=== PATIENT | female | born 1940 | race Caucasian/White ===

== ENCOUNTER 2016-08-08 07:44 | Day surgery (SDC) ==
[2016-04-08 08:46] VITALS: BMI 24.7
[2016-08-08] MEDS ORDERED: LIDOCAINE 1% 20 ML MDV ONE (08:05)
[2016-08-08] MEDS ORDERED: LIDOCAINE 1% 20 ML MDV ID ONE (08:05)
[2016-08-08] MEDS ORDERED: ALBUTEROL 0.083% NEB NEB STA (08:22)
[2016-08-08] MEDS ORDERED: DIPRIVAN 20 ML VIAL IVP ONE (09:41)
[2016-08-08] MEDS ORDERED: VERSED ONE (09:41)
[2016-08-08 11:21] VITALS: BP 161/69; TEMP 99
[2016-08-08 11:24] LABS: CREATININE 0.73 mg/dL (0.60-1.30)
--- NOTE | 2016-08-08 14:22 | OP ---
PROCEDURE: EGD (ESOPHAGOGASTRODUODENOSCOPY). ENDOSCOPIST: Cortes PRIDE M.D. INDICATION: HEME POSITIVE STOOL, IRON DEFICIENCY ANEMIA INSTRUMENT: GIFH-190. MEDICATION: PER ANESTHESIA. PROCEDURE: The patient was positioned for endoscopy. The oropharynx was sprayed with Cetacaine spray and the endoscope was advanced through the bite block into the esophagus and from there advanced to the duodenum. The duodenum was normal. The pylorus was patent. The antrum is normal. There is some mild gastritis noted in the antrum and body. Retroflex exam reveals normal cardia. The GE junction is normal. The esophagus is normal. The patient tolerated the procedure without immediate complication. PLAN: 1. Continue current medications. CC: DR. MARION COOK
--- NOTE | 2016-08-08 14:24 | OP ---
PROCEDURE: COLONOSCOPY. ENDOSCOPIST: Cortes PRIDE M.D. INDICATION: ANEMIA. INSTRUMENT: PCFH-190. MEDICATION: PER ANESTHESIA. PROCEDURE: The patient was positioned for colonoscopy. The digital rectal exam was negative. The colonoscope was inserted through the anus and advanced to the cecum. The cecum was identified using the ileocecal valve and the appendiceal orifice as landmarks. The scope was slowly withdrawn through an adequately prepped colon. The exam is notable for scattered diverticulosis. There is no evidence for inflammatory change, polyp or mass. The retroflex exam was normal. The patient tolerated the procedure without immediate complication. Withdrawal time 7 minutes. PLAN: 1. I suggest CT scan of the abdomen and pelvis given her 35 lb weight loss. 2. Further recommendations to follow. CC: DR. MARION COOK
== END 2016-08-08 11:22 | disposition home or self-care (01) ==
LOC: SURG 07:44
PROVIDERS: ATTEND Internal Medicine Gastroenterology
DX: D50.9 Iron deficiency anemia, unspecified (principal); R19.5 Other fecal abnormalities; K57.30 Diverticulosis of large intestine without perforation or abscess without bleeding; K29.70 Gastritis, unspecified, without bleeding; R63.4 Abnormal weight loss
CPT/HCPCS: 36415; 82565; 94640

== ENCOUNTER 2016-08-09 08:20 | Outpatient (CLI) ==
[2012-10-24 09:29] VITALS: TEMP 97.8
[2016-04-08 08:46] VITALS: BMI 24.7
--- NOTE | 2016-08-09 09:36 | CT ---
EXAM: CT abdomen pelvis with contrast HISTORY: Weight loss with history of prior cholecystectomy COMPARISON: CT abdomen 05/09/2000 a TECHNIQUE: Serial axial images of the abdomen pelvis were performed after 75 mL is of Omnipaque IV contrast was administered. These were obtained from the lung bases through the inferior pelvis. FINDINGS: The lung bases demonstrate minimal peripheral reticular opacities and ground-glass sugges tive of minimal fibrosis. The liver is normal. The gallbladder has been removed. The adrenal glands are normal. The kidneys are normal. There is a small low attenuation cyst in the medial left kidney measuring 0.5 cm. The spleen demonstrates calcified granulomas. The pancreas is unremarkable. The stomach is partially distended. Small bowel in the abdomen pelvis is normal. The appendix is normal. The uterus is unremarkable. There are multiple contrast-enhanced vessels in the pelvis. There is no lymphadenopathy, free air o r free fluid. The osseous structures are unremarkable. IMPRESSION: 1. No acute intra-abdominal or pelvic process to account for patient's symptoms. 2. Left renal cyst. 3. Old granulomatous disease. 4. Prior cholecystectomy. 5. Prominent pelvic contrast enhancing vessels may represent component of pelvic congestion syndrom e.
== END 2016-08-09 08:21 | disposition home or self-care (01) ==
LOC: RAD 08:20
PROVIDERS: ATTEND Internal Medicine Gastroenterology
DX: R63.4 Abnormal weight loss (principal)

== ENCOUNTER 2016-09-03 17:20 | Emergency (ER) ==
[2016-09-03 17:30] VITALS: BMI 24.0
[2016-09-03] MEDS ORDERED: SODIUM CHLORIDE 1,000 ML IV STA (17:33)
--- NOTE | 2016-09-03 17:36 | ED.PDOC ---
General ED Provider: Dr. LAVELLE ROBIN JR Stated Complaint: FEVER COUGH 3 DAYS VOMITED TWICE EARLY STILL NAUSEATED MOVES HER HEAD GETS EXTREMELY DIZZY[End] 100.8 116 20 93% 109/67 4/10 Time Seen by Physician: 17:36 Mode of Arrival: Walk-In Information Source: Patient Exam Limitations: No limitations Primary Care Provider: NOREEN SCHULTZ Nursing and Triage Documentation Reviewed and Agree: No Review of Systems - Review Of Systems Constitutional: Reports: Chills, Fever Eyes: Reports: No symptoms Ears, Nose, Mouth, Throat: Reports: No symptoms Respiratory: Reports: Cough Cardiac: Reports: No symptoms GI: Reports: Nausea, Vomiting : Reports: No symptoms Musculoskeletal: Reports: Muscle pain Skin: Reports: No symptoms Neurological: Reports: Headache Endocrine: Reports: No symptoms Hematologic/Lymphatic: Reports: No symptoms All Other Systems: Other Past Medical History - Past Medical History Previously Healthy: Yes Endocrine: Reports: None Cardiovascular: Reports: None Respiratory: Reports: COPD Hematological: Reports: None Gastrointestinal: Reports: None Genitourinary: Reports: None Neuro/Psych: Reports: None Musculoskeletal: Reports: None Cancer: Reports: None Last Menstrual Period: N/A Other Pertinent Past Medical History: macular degeneration-- - Surgical History General Surgical History: Reports: Cholecystectomy, Orthopedic (fx rt foot cholecystectomy ) - Family History Family History: Reports: None - Social History Smoking Status: Never smoker Hx Substance Use: No Alcohol Screening: None - Immunizations Tetanus Shot up to Date: Yes Physical Exam - Physical Exam Appearance: Ill-appearing, Thin Ill-appearing: Mild Pain Distress: Mild Eyes: MICHELLE, EOMI, Conjunctiva clear ENT: Ears normal, Nose normal, Oropharynx normal Neck: Supple Respiratory: Breath sounds diminished, Rhonchi Cardiovascular: RRR GI/: Soft, Nontender, No masses, Bowel sounds normal, No Organomegaly Musculoskeletal: Normal strength, ROM intact, No edema, No calf tenderness Skin: Warm, Dry, Normal color Neurological: Sensation intact, Motor intact, Reflexes intact, Cranial nerves intact, Alert, Oriented Psychiatric: Affect appropriate, Mood appropriate Interpretation - Radiology Interpretation Radiology Interpretation By: ED Physician Radiology Results: Positive Exam Interpreted: CXR - EKG Interpretation Rate: Normal Rhythm: Sinus ST Segment: Other (prolonged QT) Re-Evaluation - Re-Evaluation Time of Re-Evaluation: 19:22 Status: Improved (patient feels much better no nausea wants to try at home with medication, note has two small children (3 and 5) at home but child's mother is occasionall y helpful, agreed to allow antibiotics at home frequent temperature and close follow up return if any worse) Critical Care Note - Critical Care Note Total Time (mins): 0 Course - Course Hematology/Chemistry: 09/03/16 17:45 09/03/16 17:45 Orders, Labs, Meds: Lab Review 09/03/16 09/03/16 09/03/16 17:33 17:45 17:51 WBC 14.03 H RBC 3.81 L Hgb 11.3 L Hct 33.9 L MCV 89.0 MCH 29.7 MCHC 33.3 RDW Coeff of [place] 13.4 Plt Count 218 Immature Gran % (Auto) 0.4 Neut % (Auto) 79.2 Lymph % (Auto) 13.4 [place] % (Auto) 6.7 Eos % (Auto) 0.1 Baso % (Auto) 0.2 Immature Gran # (Auto) 0.1 Neut # 11.1 H Lymph # 1.9 [place] # 0.9 Eos # 0.0 Baso # 0.0 Puncture Site Rr O2 Saturation 100.0 ABG pH 7.499 H ABG pCO2 29.8 L ABG pO2 152.0 H ABG HCO3 23.1 ABG Total CO2 24 ABG Base Excess 0 Angel Test + O2 Delivery Device Nc Oxygen Liter Flow 2.00 FiO2 % 28.0 Sodium 134 L Potassium 3.9 Chloride 100 Carbon Dioxide 24 Anion Gap 13.9 BUN 16 Creatinine 0.73 Estimated GFR (MDRD) 77.00 BUN/Creatinine Ratio 21.91 Glucose 116 H Lactic Acid 8.9 Calcium 9.8 Total Bilirubin 0.96 AST 15 ALT 9 L Alkaline Phosphatase 92 Total Creatine Kinase 26 Troponin I < 0.0100 B-Natriuretic Peptide 37 Total Protein 7.4 Albumin 3.5 Globulin 3.9 Albumin/Globulin Ratio 0.90 Procalcitonin 0.23 Urine Color Yellow Urine Clarity Clear Urine pH 5.5 Ur Specific [place] 1.015 Urine Protein 1+ Urine Glucose (UA) Negative Urine Ketones Trace Urine Blood Negative Urine Nitrite Negative Urine Bilirubin Negative Urine Urobilinogen >=8.0 Ur Leukocyte Esterase Negative Ur Squamous Epith Cells 2-5 Influenza A (Rapid) Negative Influenza B (Rapid) Negative Orders Category Date Time Status ABG DRAW REQUEST Stat CARDIO 09/03/16 17:34 Ordered EKG-(ED ONLY) Stat CARDIO 09/03/16 17:33 Ordered IV ACCESS ONCE CARE 09/03/16 17:35 Active ED APPLY O2 .ONCE EMERGENCY 09/03/16 17:33 Active ED [employer] APPLIED .ONCE EMERGENCY 09/03/16 17:33 Active ED IV/MEDIPORT/POWERPORT .ONCE EMERGENCY 09/03/16 17:33 Active ED VITAL SIGNS Q1HR EMERGENCY 09/03/16 17:35 Active ABG Stat LAB 09/03/16 17:33 Completed B-TYPE NATRIURETIC PEPTIDE Stat LAB 09/03/16 17:45 Completed BLOOD CULTURE Stat LAB 09/03/16 17:45 Received CBC W/ AUTO DIFF Stat LAB 09/03/16 17:45 Completed COMPREHENSIVE METABOLIC PANEL Stat LAB 09/03/16 17:45 Completed CREATINE KINASE Stat LAB 09/03/16 17:45 Completed LACTIC ACID Stat LAB 09/03/16 17:45 Completed MOLECULAR GROUP A STREP Stat LAB 09/03/16 17:45 Results PROCALCITONIN Stat LAB 09/03/16 17:45 Completed RAPID FLU A/B Stat LAB 09/03/16 17:45 Completed STREP SCREEN Stat LAB 09/03/16 17:45 Results TROPONIN I Stat LAB 09/03/16 17:45 Completed URINALYSIS C & S IF INDICATED Stat LAB 09/03/16 17:51 Completed 0.9 % Sodium Chloride [Saline Flush] MEDS 09/03/16 17:33 Ordered 1 syr IVF PRN PRN Ceftriaxone Sodium [Rocephin] MEDS 09/03/16 18:16 Discontinued 1 gm .ROUTE .STK-MED ONE Ceftriaxone Sodium [Rocephin] 1 gm MEDS 09/03/16 18:01 Discontinued 0.9 % Sodium Chloride [Sodium Chloride] 50 ml IV ONCE Sodium Chloride 0.9% [Sodium Chloride] 1,000 ml MEDS 09/03/16 17:33 Active IV BOLUS CHEST, 2 VIEWS PA & LAT Stat RADS 09/03/16 17:35 Taken Medications Generic Name Dose Route Start Last Admin Trade Name Freq PRN Reason Stop Dose Admin Sodium Chloride 1,000 mls @ 100 mls/hr 09/03/16 17:33 09/03/16 18:09 Sodium Chloride IV 09/04/16 03:32 100 mls/hr BOLUS STA Administration Sodium Chloride 1 syr 09/03/16 17:33 09/03/16 18:00 Saline Flush IVF 1 syr PRN PRN Administration To flush IV Discontinued Medications Generic Name Dose Route Start Last Admin Trade Name Freq PRN Reason Stop Dose Admin Ceftriaxone Sodium 1 gm/ 50 mls @ 75 mls/hr 09/03/16 18:01 09/03/16 18:15 Sodium Chloride IV 09/03/16 18:40 75 mls/hr ONCE STA Administration Vital Signs: Temp Pulse Resp BP Pulse Ox 09/03/16 18:51 98.9 F 96 H 117/57 L 99 09/03/16 17:20 100.8 F H 116 H 20 109/67 93 L Departure - Departure Time of Disposition: 19:17 Disposition: HOME SELF-CARE Discharge Problem: Pneumonia Qualifiers: Pneumonia type: due to unspecified organism Laterality: right Lung location: lower lobe of lung Qualifier Code: (J18.1) Lobar pneumonia, unspecified organism Instructions: Pneumonia (ED) Condition: Good Pt referred to PMD for follow-up: Yes Additional Instructions: return if fever over 101.0 check temperature twice a day call PMD on Monday discuss symptoms and follow up Augmentin antibiotic for one week Robitussin AC as needed for cough Prescriptions: Amoxicillin/Potassium Clav [Augmentin 875-125 mg Tab] 1 tab PO BIDWM #14 tablet Guaifenesin/Codeine Phosphate [Robitussin AC Syrup] 10 ml PO Q6H PRN #240 ml PRN Reason: Cough Ondansetron HCl [Zofran Tab] 4 mg PO QID PRN #12 tablet PRN Reason: Nausea / Vomiting Allergies/Adverse Reactions: Allergies No Known Allergies Allergy (Verified 09/03/16 17:27) Home Medications: Ambulatory Orders Clopidogrel Bisulfate [Plavix] 75 mg PO DAILY 10/23/12 Pravastatin Sodium [Pravachol] 20 mg PO BEDTIME 10/23/12 Paroxetine HCl [Paxil] 20 mg PO DAILY 02/01/16 Tiotropium [place] [Spiriva] 1 cap IH DAILY 02/01/16 Calcium Carbonate/Vitamin D3 [Calcium 600-Vit D3 200 Tablet] 2 each PO DAILY Gluc 2Kcl/Chondr/Johana Hy/Hy AC [Glucosamine & Chondroitin Cap] 1 each PO DAILY 08/08/16 Amoxicillin/Potassium Clav [Augmentin 875-125 mg Tab] 1 tab PO BIDWM #14 tablet 09/03/16 Ferrous Sulfate [Iron] 325 mg PO DAILY 09/03/16 Guaifenesin/Codeine Phosphate [Robitussin AC Syrup] 10 ml PO Q6H PRN #240 ml Ondansetron HCl [Zofran Tab] 4 mg PO QID PRN #12 tablet 09/03/16
[2016-09-03 17:51] LABS: BASOPHILS % (AUTO) 0.2 % (0.0-3.0); EOSINOPHILS % (AUTO) 0.1 % (0.0-7.0); HEMATOCRIT 33.9 % (37.0-47.0); HEMOGLOBIN 11.3 g/dl (12.0-16.0); IMMATURE GRANULOCYTE % (AUTO) 0.4 % (0.0-5.0); LYMPHOCYTES # (AUTO) 1.9 K/uL (0.60-3.4); LYMPHOCYTES % (AUTO) 13.4 (10.0-50.0); MEAN CORPUSCULAR HEMOGLOBIN 29.7 pg (27.0-31.0); MEAN CORPUSCULAR HGB CONC 33.3 (31.8-35.4); MONOCYTES # (AUTO) 0.9 K/uL (0.4-2.0); MONOCYTES % (AUTO) 6.7 (0-10); NEUTROPHILS # (AUTO) 11.1 K/ul (2.0-6.9); NEUTROPHILS % (AUTO) 79.2; PLATELET COUNT 218 10^3/uL (140-440); RED BLOOD COUNT 3.81 10^6/ul (4.20-5.40); WHITE BLOOD COUNT 14.03 K/ul (4.6-10.2)
[2016-09-03] MEDS ORDERED: ROCEPHIN 1 GM in SODIUM CHLORIDE 50 ML IV STA (18:01)
[2016-09-03 18:06] LABS: FLU INTERNAL QC INTERNAL QC VALID; RAPID FLU A NEGATIVE (NEGATIVE); RAPID FLU B NEGATIVE (NEGATIVE)
[2016-09-03 18:15] LABS: ALANINE AMINOTRANSFERASE 9 U/L (12-78); ALBUMIN 3.5 g/dL (3.4-5.0); ALKALINE PHOSPHATASE 92 U/L (53-141); ANION GAP 13.9; ASPARTATE AMINO TRANSFERASE 15 U/L (15-37); BILIRUBIN,TOTAL 0.96 mg/dL (0.00-1.20); BLOOD UREA NITROGEN 16 mg/dL (7-18); BUN/CREATININE RATIO 21.91; CALCIUM 9.8 mg/dL (8.2-10.2); CARBON DIOXIDE 24 mmol/L (23-31); CHLORIDE 100 mmol/L (98-107); CREATINE KINASE 26 U/L; CREATININE 0.73 mg/dL (0.60-1.30); GLUCOSE 116 mg/dL (82-115); POTASSIUM 3.9 mmol/L (3.5-5.10); SODIUM 134 mmol/L (136-145); TOTAL PROTEIN 7.4 g/dL (5.8-8.1)
[2016-09-03] MEDS ORDERED: ROCEPHIN ONE (18:16)
[2016-09-03 18:35] LABS: ABG BASE EXCESS 0 (-2.0-2.0); ABG PCO2 29.8 mmHg (35-45); ABG PH 7.499 (7.35-7.45)
[2016-09-03 18:36] LABS: ABG HCO3 23.1 (22.0-26.0); ABG TCO2 24 (22.0-28.0)
[2016-09-03 18:40] LABS: BILIRUBIN,URINE Negative (NEGATIVE); KETONES,URINE Trace (NEGATIVE); LEUKOCYTE ESTERASE ,URINE Negative (NEGATIVE); NITRITE,URINE Negative (NEGATIVE); PH,URINE 5.5 (5-9); PROTEIN,URINE 1+ (NEGATIVE); URINE, BLOOD Negative (NEGATIVE)
[2016-09-03 18:41] LABS: ADD URINE MICROSCOPIC YES
[2016-09-03 18:55] VITALS: BP 117/57; TEMP 98.9
--- NOTE | 2016-09-03 19:29 | DI ---
EXAM: Chest, two views, 09/03/2016 HISTORY: Fever. Cough COMPARISON: 04/08/2016 FINDINGS / IMPRESSION: Cardiomediastinal contours appear within normal limits. Atherosclerotic vas cular disease. Patchy opacity at the lateral aspect of the right lung base. This may represent atelectasis or pneu monia. There is also adjacent small right-sided pleural effusion. No pneumothorax.
== END 2016-09-03 19:45 | disposition home or self-care (01) ==
LOC: ED 17:20
DX: J18.1 Lobar pneumonia, unspecified organism (principal); Z79.899 Other long term (current) drug therapy; R06.9 Unspecified abnormalities of breathing
CPT/HCPCS: 36415; 80053; 81001; 82550; 82803; 83605; 83880; 84145; 84484; 85025; 87040; 87651; 87804; 87880; 93005; 93010; 96360; 96361; 99284

== ENCOUNTER 2016-09-06 08:33 | Outpatient (CLI) ==
[2012-10-24 09:29] VITALS: TEMP 97.8
--- NOTE | 2016-09-06 09:42 | US ---
EXAM: Ultrasound Transvaginal Non-obstetrical. HISTORY: Pelvic congestion. COMPARISON: CT 08/09/2016. TECHNIQUE: Dawn scale and color doppler images with transvaginal probe. FINDINGS: Prominent vessels are seen in both adnexal regions. The uterus and ovaries are not seen apart from prominent vessels. No pelvic fluid collections identified. IMPRESSION: 1. Nonvisualization of the uterus and ovaries. Consider transabdominal ultrasound or pelvic MRI if further evaluation of the uterus is needed. 2. Prominent adnexal vessels bilaterally which are nonspecific.
--- NOTE | 2016-09-06 10:49 | CT ---
EXAM: CT chest with contrast. HISTORY: Weight loss. Recent diagnosis of right-sided pneumonia. COMPARISON: Radiograph 09/03/2016. CT 07/04/2011. TECHNIQUE: Multiple axial images of the chest were obtained following intravenous administration of 75 mL of Omnipaque 350, low osmolar. Images were reformatted in the sagittal and coronal planes. FINDINGS: Calcified and noncalcified mediastinal and hilar lymph nodes are present. Noncalcified p recarinal lymph node measures up to 1.3 cm short axis on axial image 24. Heart size is normal. The re is no pericardial effusion. Atherosclerotic calcifications are present. Note is made of a aberr ant right subclavian artery with retroesophageal course. Numerous bilateral nodular densities, ground-glass opacities and nodular foci of consolidation are s een throughout both lungs. The largest. There is consolidation are seen in the anterior left upper lobe on axial image 33, the anterior right upper lobe on axial image 32 and the largest in the righ t lower lobe measuring up to 2.8 cm on axial image 46. Medial right lower lobe consolidation also p resent. No pleural effusion or pneumothorax identified. Calcified granulomatous changes are presen t. Limited images of the upper abdomen demonstrate no significant finding. Degenerative changes presen t in the spine. No osteolytic or osteoblastic lesions are seen. IMPRESSION: Bilateral pulmonary nodules, ground-glass opacities and nodular foci of consolidation most likely re presenting pneumonia. Mild mediastinal lymphadenopathy. Follow-up chest CT recommended in 4-6 week s after appropriate therapy recommended for reassessment.
== END 2016-09-06 08:34 | disposition home or self-care (01) ==
LOC: RAD 08:33
PROVIDERS: ATTEND Family Medicine
DX: R63.4 Abnormal weight loss (principal)
CPT/HCPCS: 36415

== ENCOUNTER 2017-01-16 08:58 | Outpatient (CLI) ==
[2012-10-24 09:29] VITALS: TEMP 97.8
--- NOTE | 2017-01-16 09:58 | CT ---
EXAM: CT of the chest with contrast History: Follow-up pneumonia and lung nodules. Comparison: Chest CT 09/06/2016 Technique: Multiplanar CT images through the thorax were obtained following administration of IV co ntrast Findings: Heart size is normal. But are not right subclavian artery again noted. Great vessels ar e otherwise unremarkable. No pathologically enlarged thoracic lymph nodes. Mostly resolved bilatera l consolidation. There are still residual micronodules with tree in bud opacities within the left l ower lung. Subsegmental atelectasis is seen within the right middle lobe and lingula. Within the visualized upper abdomen, status post cholecystectomy. Calcified granulomas within the s pleen. Fatty liver. No acute osseous abnormalities. Impression: 1. Mostly resolved bilateral pneumonia. There are still residual micronodules with tree in bud [place] in the left lower lung. Recommend follow-up chest CT in 3-6 months to document resolution. 2. Fatty liver
== END 2017-01-16 08:59 | disposition home or self-care (01) ==
LOC: RAD 08:58
PROVIDERS: ATTEND Family Medicine
DX: R93.8 Abnormal findings on diagnostic imaging of other specified body structures (principal)

== ENCOUNTER 2017-01-19 08:22 | Outpatient (CLI) ==
[2012-10-24 09:29] VITALS: TEMP 97.8
== END 2017-01-19 08:23 | disposition home or self-care (01) ==
LOC: RAD 08:22
PROVIDERS: ATTEND Family Medicine
DX: Z12.31 Encounter for screening mammogram for malignant neoplasm of breast (principal)
CPT/HCPCS: 77067

== ENCOUNTER 2017-07-25 08:32 | Outpatient (CLI) ==
[2012-10-24 09:29] VITALS: TEMP 97.8
--- NOTE | 2017-07-25 10:07 | CT ---
EXAM: CT of the chest with contrast History: Follow-up lung nodules. Comparison: Chest CT 01/16/2017 Technique: Multiplanar CT images through the thorax were obtained following administration of IV con trast Findings: Heart size is within normal limits. No pericardial effusion. 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 No pathologically enlarged thoracic lymph nodes. Calcified gra nulomas are again seen within the thorax. Chronic right middle lobe and lingular subsegmental atelec tasis with air bronchograms. Increased nodular opacities within the lower lungs. No pleural fluid an d no pneumothorax. Within the visualized upper abdomen, status post cholecystectomy and fatty liver. No acute osseous a bnormalities. Impression: 1. Increased nodular opacities within the lower lungs. Consider atypical infections such as Mycobact erium avium complex.
== END 2017-07-25 08:33 | disposition home or self-care (01) ==
LOC: RAD 08:32
PROVIDERS: ATTEND Family Medicine
DX: R93.8 Abnormal findings on diagnostic imaging of other specified body structures (principal)

== ENCOUNTER 2017-09-06 08:40 | Emergency (ER) | payer OTHER ==
[2017-09-06 08:45] VITALS: BP 151/88; TEMP 98.1; BMI 24.6
[2017-09-06] MEDS ORDERED: ATIVAN IM STA (08:56)
--- NOTE | 2017-09-06 11:07 | CT ---
EXAM: CTA chest for PE HISTORY: Shortness of breath COMPARISON: CT chest 07/25/2017 and multiple priors TECHNIQUE: CTA of the chest was performed from the lung apices to the upper abdomen after 100 ml of Omnipaque IV contrast was administered using PE protocol. 3-D imaging was also provided. FINDINGS: There is no filling defect in the pulmonary arteries to the level of the subsegmental pulm onary arteries. The heart is normal without signs of ventricular strain. The aortic arch is unremark able with mild atherosclerotic disease and a aberrant right subclavian artery. Cardiomediastinal silh ouette is unremarkable with no visualized effusion. Thyroid is unremarkable. There is no mediastina l or hilar pathologically enlarged lymph nodes. There are nonenlarged right axillary lymph nodes. There is patchy nodular ground-glass in the right upper lobe on image 26 and 28. Additional patchy o pacities and ground-glass is noted in the superior segment left lower lobe in the dependent aspect of the right upper lobe. Focal consolidation is noted in the periphery of the right upper lobe. There is mild ground-glass and consolidation in the right middle lobe and lingula. Patchy ground-glass an d airway thickening is noted in the bilateral lower lobes. The central airways are patent. Soft tissues demonstrate prior cholecystectomy. The osseous structures demonstrate degenerative dise ase. IMPRESSION: 1. No pulmonary embolism. 2. Worsening of patchy bilateral ground-glass and nodular opacities with few areas of consolidation, most pronounced in the right upper lobe. Findings are suggestive of worsening atypical pneumonia. 3. Mild atherosclerotic disease with aberrant right subclavian arteries.
[2017-09-06] MEDS ORDERED: ROCEPHIN 1 GM in SODIUM CHLORIDE 50 ML IV STA (11:30)
[2017-09-06] MEDS ORDERED: ZITHROMAX 500 MG in SODIUM CHLORIDE 250 ML IV STA (11:31)
--- NOTE | 2017-09-06 11:33 | ED.PDOC ---
General ED Provider: Dr. ROSALES BENSON Chief Complaint: Respiratory Complaint Stated Complaint: short of air Time Seen by Physician: 08:45 (short of air ) Mode of Arrival: Walk-In Information Source: Patient Exam Limitations: No limitations Primary Care Provider: NOREEN SCHULTZ Nursing and Triage Documentation Reviewed and Agree: Yes Reviewed sepsis parameters & appropriate labs ordered?: Yes System Inflammatory Response Syndrome: Not Applicable Sepsis Protocol: For patient's 13 years and over: Temp is 96.8 and below OR 101 and greater Pulse >90 BPM Resp >20/minute Acutely Altered Mental Status Are patient's symptoms suggestive of a new infection, such as: -Pneumonia -Skin, Soft Tissue -Endocarditis -UTI -Bone, Joint Infection -Implantable Device -Acute Abdominal Infection -Wound Infection -Meningitis -Blood Stream Catheter Infection -Unknown System Inflammatory Response Syndrome: Not Applicable Respiratory Complaint Exam - Respiratory Complaint/Exam Onset/Duration: today morning Symptoms Are: Still present Timing: Intermittent Initial Severity: Mild Current Severity: Mild Location: Nose, Throat, Chest Character: Reports: Non-productive cough Aggravating: Reports: URI Alleviating: Reports: Spontaneous resolution Associated Signs and Symptoms: Reports: URI, Nasal congestion, Sore throat Related History: Reports: Similar episode History of Healthcare-Acquired Pneumonia: No Related Surgical History: Reports: None Cardiac Risk Factors: Reports: Hypertension Pseudomonas Risk Factors: Reports: None Tuberculosis Risk Factors: Reports: None Status Asthmaticus Risk Factors: Reports: None Home Oxygen Use: No Recent Stress Test: No Recent Echo/LV Function: No Current Antibiotic Use: No Current Asthma Medication Use: No Respiratory Distress: None Inadequate Respiratory Effort: No Dysphagia Present: No Stridor Present: No JVD Present: No Retractions: Not Present Grunting Respirations: No Kussmaul Respirations: No Differential Diagnoses: Pneumonia, Bronchitis Review of Systems - Review Of Systems Constitutional: Reports: Malaise Eyes: Reports: No symptoms Ears, Nose, Mouth, Throat: Reports: No symptoms Respiratory: Reports: Short of air Cardiac: Reports: No symptoms GI: Reports: No symptoms : Reports: No symptoms Musculoskeletal: Reports: No symptoms Skin: Reports: No symptoms Neurological: Reports: No symptoms Endocrine: Reports: No symptoms Hematologic/Lymphatic: Reports: No symptoms All Other Systems: Reviewed and Negative Past Medical History - Past Medical History Previously Healthy: Yes Endocrine: Reports: None Cardiovascular: Reports: None Respiratory: Reports: COPD Hematological: Reports: None Gastrointestinal: Reports: None Genitourinary: Reports: None Neuro/Psych: Reports: None Musculoskeletal: Reports: None Cancer: Reports: None Last Menstrual Period: NA Other Pertinent Past Medical History: macular degeneration-- - Surgical History General Surgical History: Reports: Cholecystectomy, Orthopedic - Family History Family History: Reports: None - Social History Smoking Status: Never smoker Hx Substance Use: No Alcohol Screening: None Physical Exam - Physical Exam Appearance: Well-appearing, No pain distress, Well-nourished Eyes: MICHELLE, EOMI, Conjunctiva clear ENT: Ears normal, Nose normal, Oropharynx normal Respiratory: Airway patent, Breath sounds clear, Breath sounds equal, Respirations nonlabored Cardiovascular: RRR, Pulses normal, No rub, No murmur GI/: Soft, Nontender, No masses, Bowel sounds normal, No Organomegaly Musculoskeletal: Normal strength, ROM intact, No edema, No calf tenderness Skin: Warm, Dry, Normal color Neurological: Sensation intact, Motor intact, Reflexes intact, Cranial nerves intact, Alert, Oriented Psychiatric: Affect appropriate, Mood appropriate Interpretation - Radiology Interpretation Radiology Results: Positive (worsening atypical pneumonia) Exam Interpreted: CT Scan (negative for PE) Re-Evaluation - Re-Evaluation Time of Re-Evaluation: 10:00 Status: Improved Vital Signs Stable: Yes Pain Level: 0 Appearance: NAD Lungs: Clear Skin: Warm and Dry Neuro: Alert and Oriented X3 CV: RRR - Re-Evaluation Time of Re-Evaluation: 11:34 Status: Improved Vital Signs Stable: Yes Pain Level: 0 Appearance: NAD Skin: Warm and Dry Neuro: Alert and Oriented X3 CV: RRR Critical Care Note - Critical Care Note Total Time (mins): 0 Course - Course Hematology/Chemistry: 09/06/17 09:00 09/06/17 09:00 Orders, Labs, Meds: Lab Review 09/06/17 09/06/17 09/06/17 08:55 09:00 09:00 WBC 7.58 RBC 3.58 L Hgb 10.3 L Hct 32.0 L MCV 89.4 MCH 28.8 MCHC 32.2 RDW Coeff of [place] 14.0 Plt Count 443 H Immature Gran % (Auto) 0.5 Neut % (Auto) 53.7 Lymph % (Auto) 36.8 [place] % (Auto) 7.4 Eos % (Auto) 1.2 Baso % (Auto) 0.4 Immature Gran # (Auto) 0.0 Neut # (Auto) 4.1 Lymph # (Auto) 2.8 Loving # (Auto) 0.6 Eos # (Auto) 0.1 Baso # (Auto) 0.0 Puncture Site Rbrach O2 Saturation 99.0 ABG pH 7.597 H* ABG pCO2 24.0 L ABG pO2 105.0 H ABG HCO3 23.4 ABG Total CO2 24 ABG Base Excess 2 FiO2 % 21.0 Sodium 141 Potassium 3.9 Chloride 105 Carbon Dioxide 23 Anion Gap 16.9 BUN 16 Creatinine 0.69 Estimated GFR (MDRD) 82.00 BUN/Creatinine Ratio 23.18 Glucose 107 Calcium 9.8 Total Bilirubin 0.4 AST 17 ALT 8 L Alkaline Phosphatase 100 Total Creatine Kinase 30 Troponin I < 0.0100 Total Protein 7.7 Albumin 3.0 L Globulin 4.7 Albumin/Globulin Ratio 0.64 Influ A Molecular Assay Influ B Molecular Assay 09/06/17 09:15 WBC RBC Hgb Hct MCV MCH MCHC RDW Coeff of [place] Plt Count Immature Gran % (Auto) Neut % (Auto) Lymph % (Auto) Loving % (Auto) Eos % (Auto) Baso % (Auto) Immature Gran # (Auto) Neut # (Auto) Lymph # (Auto) Loving # (Auto) Eos # (Auto) Baso # (Auto) Puncture Site O2 Saturation ABG pH ABG pCO2 ABG pO2 ABG HCO3 ABG Total CO2 ABG Base Excess FiO2 % Sodium Potassium Chloride Carbon Dioxide Anion Gap BUN Creatinine Estimated GFR (MDRD) BUN/Creatinine Ratio Glucose Calcium Total Bilirubin AST ALT Alkaline Phosphatase Total Creatine Kinase Troponin I Total Protein Albumin Globulin Albumin/Globulin Ratio Influ A Molecular Assay Negative by naat Influ B Molecular Assay Negative by naat Orders Category Date Time Status ABG DRAW REQUEST Stat CARDIO 09/06/17 08:55 Completed EKG-(ED ONLY) Stat CARDIO 09/06/17 08:55 Completed NPO REMINDER: IMAGING ONCE CARE 09/06/17 10:06 Active ED IV/MEDIPORT/POWERPORT .ONCE EMERGENCY 09/06/17 08:55 Active ABG Stat LAB 09/06/17 08:55 Completed CBC W/ AUTO DIFF Stat LAB 09/06/17 09:00 Completed COMPREHENSIVE METABOLIC PANEL Stat LAB 09/06/17 09:00 Completed CREATINE KINASE Stat LAB 04/18/18 09:00 Completed FLU A/B MOLECULAR Stat LAB 09/06/17 09:15 Completed TROPONIN I Stat LAB 09/06/17 09:00 Completed 0.9 % Sodium Chloride [Saline Flush] MEDS 09/06/17 08:54 Active 1 syr IVF PRN PRN Ceftriaxone Sodium [Rocephin] 1 gm MEDS 09/06/17 11:30 Ordered 0.9 % Sodium Chloride [Sodium Chloride] 50 ml IV ONCE Lorazepam [Ativan] MEDS 09/06/17 08:56 Discontinued 0.5 mg IM ONCE STA CT CHEST PE PROTOCOL Stat RADS 09/06/17 10:06 Completed Medications Generic Name Dose Route Start Last Admin Trade Name Freq PRN Reason Stop Dose Admin Ceftriaxone Sodium 1 gm/ 50 mls @ 75 mls/hr 09/06/17 11:30 Sodium Chloride IV 09/06/17 12:09 ONCE STA Sodium Chloride 1 syr 09/06/17 08:54 Saline Flush IVF PRN PRN To flush IV Discontinued Medications Generic Name Dose Route Start Last Admin Trade Name Freq PRN Reason Stop Dose Admin Lorazepam 0.5 mg 09/06/17 08:56 09/06/17 09:18 Ativan IM 09/06/17 08:57 0.5 mg ONCE STA Administration Vital Signs: Temp Pulse Resp BP Pulse Ox 09/06/17 08:41 98.1 F 102 H 22 151/88 H 96 Departure - Departure Time of Disposition: 11:35 Disposition: HOME SELF-CARE Discharge Problem: Pneumonia Qualifiers: Pneumonia type: due to unspecified organism Instructions: Pneumonia (ED) Condition: Good Pt referred to PMD for follow-up: Yes IPMP verified?: No Additional Instructions: Please call your Family Physician as soon as possible to schedule a follow-up appointment. Allergies/Adverse Reactions: Allergies No Known Allergies Allergy (Verified 09/03/16 17:27) Home Medications: Ambulatory Orders Clopidogrel Bisulfate [Plavix] 75 mg PO DAILY 10/23/12 Pravastatin Sodium [Pravachol] 20 mg PO BEDTIME 10/23/12 Paroxetine HCl [Paxil] 20 mg PO DAILY 02/01/16 Tiotropium Maceo [Spiriva] 1 cap IH DAILY 02/01/16 Calcium Carbonate/Vitamin D3 [Calcium 600-Vit D3 200 Tablet] 2 each PO DAILY Glucosam/Chondr/Collagn/Hyalur [Glucosamine & Chondroitin Cap] 1 each PO DAILY 08/08/16
== END 2017-09-06 13:50 | disposition home or self-care (01) ==
LOC: ED 08:40
DX: J18.9 Pneumonia, unspecified organism (principal); R06.02 Shortness of breath; I10 Essential (primary) hypertension; R53.81 Other malaise; Z79.899 Other long term (current) drug therapy
CPT/HCPCS: 36415; 80053; 82550; 82803; 84484; 85025; 87502; 93005; 93010; 96365; 96366; 96372; 99283

== ENCOUNTER 2017-12-25 12:41 | Outpatient (CLI) ==
[2012-10-24 09:29] VITALS: TEMP 97.8
--- NOTE | 2017-12-25 14:12 | CT ---
EXAM: CT chest without contrast HISTORY: Lung infiltrate COMPARISON: 09/06/2017 TECHNIQUE: CT chest performed without intravenous contrast. Coronal and sagittal reformatted images obtained. FINDINGS: Thoracic inlet unremarkable. Heart normal in size. No pericardial effusion. Aorta nena l in caliber. Mild atherosclerosis. Esophagus unremarkable. Evaluation for lymphadenopathy limited without contrast. No lymphadenopathy identified. Granulomatous calcification. Visualized portion upper abdomen demonstrates no acute abnormality. Patient status post cholecystectomy. No acute abno rmalities of the bones. Degenerative change in the spine. Central airway patent. Scarring in the r ight middle lobe and lingula. There has been near resolution of the previously seen ground-glass nod ularity with minimal scattered residual ground-glass, for example image 21 in the right upper lobe. N o pleural effusion or pneumothorax. IMPRESSION: Near resolution of the patchy bilateral ground-glass and nodular opacities with minimal residual ground-glass.
== END 2017-12-25 12:42 | disposition home or self-care (01) ==
LOC: RAD 12:41
PROVIDERS: ATTEND Nurse Practitioner Family
DX: R91.8 Other nonspecific abnormal finding of lung field (principal)

== ENCOUNTER 2018-05-29 08:55 | Outpatient (CLI) | payer OTHER ==
[2012-10-24 09:29] VITALS: TEMP 97.8
--- NOTE | 2018-05-30 09:10 | MAMMO ---
EXAM: Bilateral digital screening mammogram (2-D and 3-D) History: Screening Comparison: Bilateral mammogram 01/19/2017 Findings: MLO and CC views of bilateral breasts demonstrate scattered fibroglandular breast parenchy ma. CAD was reviewed by the radiologist. Tomosynthesis was performed. Stable benign bilateral scat tered and vascular calcifications. There are no dominant masses, no suspicious microcalcifications a nd no architectural distortions. Impression: Benign stable mammogram. Recommend followup routine screening mammography in 1 year. BIRADS 2
== END 2018-05-29 08:56 | disposition home or self-care (01) ==
LOC: RAD 08:55
PROVIDERS: ATTEND Family Medicine
DX: Z12.31 Encounter for screening mammogram for malignant neoplasm of breast (principal)

== ENCOUNTER 2018-07-02 12:50 | Outpatient (CLI) | payer OTHER ==
[2012-10-24 09:29] VITALS: TEMP 97.8
--- NOTE | 2018-07-02 13:23 | CT ---
EXAM: CT of the chest without contrast History: Follow-up pneumonia Comparison: Chest CT 12/25/2017 Technique: Multiplanar CT images through the thorax were obtained without the administration of IV c ontrast Findings: Heart size is within normal limits. No pericardial effusion. Aberrant left subclavian ar betty again noted. No pathologically enlarged thoracic lymph nodes. No thoracic aortic aneurysm. No change in the chronic subsegmental atelectasis within the right middle lobe and lingula. No suspici ous lung masses or lung nodules. No consolidated pneumonia. No pleural fluid and no pneumothorax. Within the visualized upper abdomen, status post cholecystectomy. Calcified granulomas within the sp aminah. No acute osseous abnormalities. Impression: 1. No acute intrathoracic process. 2. No suspicious lung masses or lung nodules. No additional follow-up is needed.
== END 2018-07-02 12:51 | disposition home or self-care (01) ==
LOC: RAD 12:50
PROVIDERS: ATTEND Nurse Practitioner Family
DX: R91.8 Other nonspecific abnormal finding of lung field (principal)